=== PATIENT | female | born 2000 | race Two or more races ===

== ENCOUNTER 2022-02-02 01:58 | Emergency (ER) | payer SELFPAY ==
[~2022-02-02] VITALS: Ht 167.6 cm; Wt 80.0 kg
[2022-02-02 04:36] VITALS: BP 118/70
== END 2022-02-02 05:42 | disposition left against medical advice (07) ==
LOC: ER 01:58
DX: F10.10 Alcohol abuse, uncomplicated (principal); Y90.9 Presence of alcohol in blood, level not specified; Z53.21 Procedure and treatment not carried out due to patient leaving prior to being seen by health care provider